=== PATIENT | female | born 1945 | race Hispanic/Latino ===

== ENCOUNTER → 2017-06-08 | Outpatient (CLI) | payer MEDICARE ==
[~2017-06-08] MED LIST: GLYBURIDE-METF1 EAC1 PO; JANUVIA25 MG PO; LISINOPRIL2.5 MG PO; REGADENOSON 0.4 MG/5 ML SYR IV ONE; SIMVASTATIN5 MG PO
--- NOTE | 2017-06-08 17:23 | Cardiology Report ---
DATE OF STUDY: June 08, 2017 LEXISCAN NUCLEAR STRESS TEST INDICATION: Chest pain. TECHNIQUE: The patient was given 11 millicuries of Myoview. Resting images were obtained in the horizontal long axis, vertical long axis and short axis. The patient was then hooked up to the EKG machine and Lexiscan was infused over 15 seconds. Patient was given 30 millicuries of Myoview. Stress images were obtained in the horizontal long axis, vertical long axis and short axis. RESULTS: 1. A normal resting EKG. 2. No EKG changes and no symptoms during Lexiscan infusion. 3. There was normal perfusion to all segments of the myocardium in both stress and rest. 4. There was normal left ventricular size and function with an ejection fraction of 70%. CONCLUSION: It is a normal Lexiscan nuclear stress test with no evidence of ischemia. Normal left ventricular size and function. Job#: [id number]
== END ==
LOC: NM 07:32
PROVIDERS: ATTEND Internal Medicine Cardiovascular Disease
DX: R07.2 Precordial pain (principal)
CPT/HCPCS: 78452; 93017; A9502